=== PATIENT | male | born 1990 | race Caucasian/White ===

== ENCOUNTER 2016-11-14 14:33 | Emergency (ER) | payer MEDICARE, MEDICAID ==
[2016-11-14 15:49] LABS: BASOPHILS 0.2 % (0-2); EOSINOPHILS 0.8 % (0-7); HEMOGLOBIN 16.2 g/dL (13.5-17.5); IMMATURE GRANULOCYTES 0.1 % (0-5); LYMPHOCYTES 17.8 % (15-50); MCH 29.9 pg (26.0-34.0); MCHC 33.8 g/dL (31.0-37.0); MCV 88.6 fL (80.0-100.0); MEAN PLATELET VOLUME 10.8 fL (7.4-10.4); MONOCYTES 9.8 % (2-11); NEUTROPHILS 71.3 % (40-80); RBC 5.42 10x6/uL (4.20-6.10); RDW 13.5 % (11.5-14.5); WBC 10.9 10x3/uL (4.8-10.8)
[2016-11-14 15:56] LABS: PLATELET COUNT 265 10x3/uL (130-400)
[2016-11-14 16:05] LABS: ALBUMIN 4.3 g/dL (3.4-5.0); ALKALINE PHOSPHATASE 60 U/L (46-116); ALT (SGPT) 28 U/L (10-68); BILIRUBIN - TOTAL 0.29 mg/dL (0.2-1.3); CALC OSMOLALITY 277 mosm/kg (275-300); CHLORIDE - SERUM 104 mmol/L (98-107); CREATININE - SERUM 1.1 mg/dL (0.6-1.3); GLUCOSE 88 mg/dL (74-106); POTASSIUM - SERUM 4.3 mmol/L (3.5-5.1); PROTEIN - SERUM 7.9 g/dL (6.4-8.2); SODIUM 140 mmol/L (136-145); UREA NITROGEN 13 mg/dL (7-18); eGFR NON AFRICAN AMERICAN 86 mL/min (90-120)
[2016-11-14 18:28] LABS: APPEARANCE CLEAR (CLEAR); BILIRUBIN NEGATIVE (NEGATIVE); COLOR YELLOW (YELLOW); GLUCOSE NEGATIVE (NEGATIVE); KETONE SMALL mg/dL (NEGATIVE); LEUKOCYTE ESTERASE NEGATIVE (NEGATIVE); NITRITE NEGATIVE (NEGATIVE); PROTEIN NEGATIVE (NEGATIVE); SPECIFIC GRAVITY 1.025 (1.005-1.020); UROBILINOGEN NORMAL (NORMAL)
== END 2016-11-14 19:30 | disposition home or self-care (01) ==
LOC: D.ER 14:33
PROVIDERS: Emergency Medicine
DX: K59.00 Constipation, unspecified (principal); K21.9 Gastro-esophageal reflux disease without esophagitis

== ENCOUNTER 2016-11-15 12:59 | Emergency (ER) | payer MEDICARE, MEDICAID | END 2016-11-15 16:52 | disposition home or self-care (01) | LOC: D.ER 12:59 | DX: K29.00 Acute gastritis without bleeding (principal); R10.13 Epigastric pain; K59.00 Constipation, unspecified; K21.9 Gastro-esophageal reflux disease without esophagitis; Z95.0 Presence of cardiac pacemaker ==

== ENCOUNTER → 2016-11-20 13:02 | Outpatient (CLI) | payer MEDICARE, MEDICAID ==
[2016-11-20 15:16] LABS: UDS - AMPHET NEGATIVE QUAL (NEGATIVE); UDS - BARB NEGATIVE QUAL (NEGATIVE); UDS - BENZO NEGATIVE QUAL (NEGATIVE); UDS - COCAINE NEGATIVE QUAL (NEGATIVE); UDS - METH NEGATIVE QUAL (NEGATIVE); UDS - OPIATE NEGATIVE QUAL (NEGATIVE); UDS - PCP NEGATIVE QUAL (NEGATIVE); UDS - THC POSITIVE QUAL (NEGATIVE)
== END | disposition home or self-care (01) ==
LOC: D.LABREF 13:02
PROVIDERS: Family Medicine
DX: R10.32 Left lower quadrant pain (principal); R11.0 Nausea

== ENCOUNTER 2017-11-28 18:47 | Inpatient (IN) | payer MEDICARE ==
[~2017-11-28] VITALS: Ht 180.3 cm; Wt 83.0 kg
--- NOTE | ~2017-11-28 | HP ---
PATIENT: YANIV BUTCHER MEDICAL RECORD: [id number] ACCOUNT: [id number] LOCATION:[id number] : 90 ADMISSION DATE: 11/28/17 HISTORY AND PHYSICAL EXAMINATION REASON FOR ADMISSION: Abdominal pain and vomiting. HISTORY OF PRESENT ILLNESS: The patient is a 27-year-old male with longstanding history of chronic constipation and diverticulosis. He presented to our office, seeing Chrissie Samuel APN day before admission complaining of 3 days of increasing left lower quadrant abdominal pain, initial constipation, then loose stools. He had fever to 100 degrees Fahrenheit and some nausea and vomiting. Exam was consistent with diverticulitis. He was treated with oral Levaquin and Flagyl, but apparently could not tolerate the Flagyl, was vomiting through the night. He called back with the symptoms and was directly admitted to the hospital for diverticulitis, failing outpatient therapy. PAST MEDICAL HISTORY: Remote history of SVT, sick sinus syndrome, chronic constipation, chronic anxiety, hiatal hernia, asthma, depression, osteoarthritis of bilateral hips, remote history of C. diff. PAST SURGICAL HISTORY: Pacemaker placement, EGD, colonoscopy most recently showing sigmoid diverticulitis. Laparoscopic appendectomy 02/2013, reason barium swallow showing delayed gastric emptying. FAMILY HISTORY: Father, sister with asthma. One sister with diabetes. Father with heart disease, hypertension, lung cancer in his father as well. SOCIAL HISTORY: He quit smoking about 6 years ago, 0.75 pack year history of smoking. Denies alcohol or illicit drugs. He is . Disabled due to anxiety. HOME MEDICATIONS: Levaquin 500 mg p.o. daily, Flagyl 500 mg p.o. t.i.d. ALLERGIES: None known. REVIEW OF SYSTEMS: CONSTITUTIONAL: Low-grade fever as mentioned and malaise and poor appetite. HEENT: No recent visual change, sinus congestion, or sore throat. RESPIRATORY: No severe cough. CARDIAC: No exertional chest pain, claudication, or edema. GASTROINTESTINAL: He has had nausea with vomiting, worse after starting Flagyl. He has had left lower quadrant abdominal pain for 5 days. Initial constipation, now loose stools. He has no rebound pain. GENITOURINARY: Denies dysuria, nocturia, or incontinence. MUSCULOSKELETAL: Has lumbago without sciatica. He also has bilateral hip pain. PSYCHIATRIC: Admits to chronic depressed mood and anxiety. INTEGUMENTARY: No rash or itching. PHYSICAL EXAMINATION: VITAL SIGNS: Temperature 97.7, pulse 78, respirations 19, blood pressure 136/72 with a sat 93 percent on room air. GENERAL: The patient appears to be in moderate pain. He is alert and oriented. HEENT: Eyes are clear. NECK: Supple. HISTORY AND PHYSICAL [id number] YANIV BUTCHER CHEST: Clear. HEART: Regular without murmur. ABDOMEN: Soft, tender in left lower quadrant. No rebound. Bowel sounds are active. No masses were noted. EXTREMITIES: No CC&E. INTEGUMENT: No rash. MUSCULOSKELETAL: He has pain in both hips flexion and extension. LABORATORY DATA: His white count in the office was 13,520, H and H of 16 and 46.7 respectively, and platelet count 242,000 with left shift. UA was negative. ASSESSMENT: Acute sigmoid diverticulitis, failing outpatient therapy, history of chronic constipation, history of diverticulosis, history of sick sinus syndrome with pacemaker, history of tachy-louie, depression, osteoarthritis, gastroesophageal reflux disease. PLAN: The patient admitted for IV antibiotics, antiemetics, IV fluids until tolerating diet. TRANSINT:[id number] Voice Confirmation ID: [id number] DOCUMENT ID: [id number] NERY AHN MD at 2002 CC: [id number] DICTATION DATE: 11/29/17 09 WEB DESIGN SPECIALIST: 11/29/17 1151 ADM IN [id number] [place] [address]
[2017-11-28 20:39] VITALS: BP 118/76
[2017-11-28 21:38] VITALS: BP 156/72; BMI 25.5
[2017-11-28 23:37] VITALS: BP 119/78
[2017-11-29 04:34] VITALS: BP 113/70
[2017-11-29 05:55] LABS: BASOPHILS 0.4 % (0-2); EOSINOPHILS 2.4 % (0-7); HEMATOCRIT 43.4 % (42.0-54.0); HEMOGLOBIN 14.7 g/dL (13.5-17.5); IMMATURE GRANULOCYTES 0.1 % (0-5); LYMPHOCYTES 34.8 % (15-50); MCH 29.5 pg (26.0-34.0); MCHC 33.9 g/dL (31.0-37.0); MCV 87.1 fL (80.0-100.0); MEAN PLATELET VOLUME 10.7 fL (7.4-10.4); NEUTROPHILS 51.3 % (40-80); RBC 4.98 10x6/uL (4.20-6.10); RDW 13.5 % (11.5-14.5); WBC 7.5 10x3/uL (4.8-10.8)
[2017-11-29 06:07] LABS: PLATELET COUNT 208 10x3/uL (130-400)
[2017-11-29 06:25] LABS: ALBUMIN 3.6 g/dL (3.4-5.0); ALKALINE PHOSPHATASE 41 U/L (46-116); ALT (SGPT) 19 U/L (10-68); BILIRUBIN - TOTAL 0.64 mg/dL (0.2-1.3); CALC OSMOLALITY 281 mosm/kg (275-300); CALCIUM 8.6 mg/dL (8.5-10.1); CARBON DIOXIDE 29.5 mmol/L (21.0-32.0); CHLORIDE - SERUM 106 mmol/L (98-107); GLUCOSE 101 mg/dL (74-106); POTASSIUM - SERUM 4.2 mmol/L (3.5-5.1); SODIUM 142 mmol/L (136-145); UREA NITROGEN 10 mg/dL (7-18); eGFR NON AFRICAN AMERICAN > 90 mL/min (90-120)
[2017-11-29 09:21] VITALS: BP 115/67
[2017-11-29 09:46] VITALS: Ht 180.3 cm; Wt 83.0 kg
[2017-11-29 14:12] VITALS: BP 120/63
[2017-11-29 17:58] VITALS: BP 126/64
[2017-11-29 23:04] VITALS: BP 115/78
[2017-11-30 08:48] VITALS: BP 111/62
[2017-11-30] MEDS ORDERED: FLORAJEN3 CAPS460 MG PO (12:58)
[2017-11-30] MEDS ORDERED: LEVAQUIN500 MG PO (12:59)
[2017-11-30] MEDS ORDERED: ZOFRAN ODT4 MG/UDTAB PO (12:59)
[2017-11-30] MEDS ORDERED: FLAGYL500 MG PO (13:00)
[2017-11-30 16:52] VITALS: BP 113/78
== END 2017-11-30 17:15 | disposition home or self-care (01) | DRG 392 ==
LOC: D.MS 18:47
PROVIDERS: Family Medicine
DX: K57.32 Diverticulitis of large intestine without perforation or abscess without bleeding (principal); Z95.0 Presence of cardiac pacemaker; K21.9 Gastro-esophageal reflux disease without esophagitis; F32.9 Major depressive disorder, single episode, unspecified; K59.09 Other constipation

== ENCOUNTER → 2018-11-02 16:24 | Outpatient (CLI) | payer MEDICARE ==
[2017-11-29 09:46] VITALS: BMI 25.5
[~2018-11-02 16:24] MED LIST: BENTYL 20 MG TA20 MG PO; CIPRO500 MG PO; FLAGYL500 MG PO; FLORAJEN3 CAPS460 MG PO; LEVAQUIN500 MG PO; ZOFRAN ODT4 MG/UDTAB PO
== END | disposition home or self-care (01) ==
LOC: D.CT 16:00
PROVIDERS: ATTEND Emergency Medicine
DX: K57.92 Diverticulitis of intestine, part unspecified, without perforation or abscess without bleeding (principal)

== ENCOUNTER 2018-11-03 15:35 | Emergency (ER) | payer MEDICARE ==
[~2018-11-03] VITALS: Ht 180.3 cm; Wt 86.8 kg
[~2018-11-03 15:35] MED LIST changes: -BENTYL 20 MG TA20 MG PO; -CIPRO500 MG PO
[2018-11-03 15:47] VITALS: Ht 180.3 cm; Wt 86.8 kg
[2018-11-03] MEDS ORDERED: CIPRO500 MG PO (15:51)
[2018-11-03 18:36] LABS: BASOPHILS 0.2 % (0-2); EOSINOPHILS 0.6 % (0-7); HEMATOCRIT 45.1 % (42.0-54.0); HEMOGLOBIN 15.5 g/dL (13.5-17.5); IMMATURE GRANULOCYTES 0.2 % (0-5); LYMPHOCYTES 23.3 % (15-50); MCH 29.7 pg (26.0-34.0); MCHC 34.4 g/dL (31.0-37.0); MCV 86.4 fL (80.0-100.0); MEAN PLATELET VOLUME 10.6 fL (7.4-10.4); MONOCYTES 9.6 % (2-11); NEUTROPHILS 66.1 % (40-80); PLATELET COUNT 220 10x3/uL (130-400); RBC 5.22 10x6/uL (4.20-6.10); RDW 13.5 % (11.5-14.5); WBC 9.4 10x3/uL (4.8-10.8)
[2018-11-03 18:52] LABS: ALBUMIN 4.2 g/dL (3.4-5.0); ALKALINE PHOSPHATASE 49 U/L (46-116); ALT (SGPT) 14 U/L (10-68); BILIRUBIN - TOTAL 0.41 mg/dL (0.2-1.3); CALC OSMOLALITY 278 mosm/kg (275-300); CALCIUM 8.6 mg/dL (8.5-10.1); CARBON DIOXIDE 25.2 mmol/L (21.0-32.0); CHLORIDE - SERUM 105 mmol/L (98-107); CREATININE - SERUM 1.1 mg/dL (0.6-1.3); GLUCOSE 85 mg/dL (74-106); POTASSIUM - SERUM 3.9 mmol/L (3.5-5.1); PROTEIN - SERUM 7.6 g/dL (6.4-8.2); SODIUM 141 mmol/L (136-145); UREA NITROGEN 11 mg/dL (7-18); eGFR NON AFRICAN AMERICAN 85 mL/min (90-120)
[2018-11-03] MEDS ORDERED: BENTYL 20 MG TA20 MG PO (19:41)
[2018-11-03] MEDS ORDERED: ZOFRAN ODT4 MG/UDTAB PO (19:41)
[2018-11-03 19:54] VITALS: BP 148/86
== END 2018-11-03 19:59 | disposition home or self-care (01) ==
LOC: D.ER 15:35
PROVIDERS: Family Medicine
DX: R10.9 Unspecified abdominal pain (principal); R11.0 Nausea